=== PATIENT | male | born 1940 | race Two or more races ===

== ENCOUNTER → 2018-05-09 | Emergency (ER) | payer OTHER ==
[2018-05-09 01:11] VITALS: BP 163/74; PULSE 91; TEMP 98.8; BMI 21.4
--- NOTE | 2018-05-09 02:00 | PDOC ---
Attending Attestation - Resident Resident Name: Dhiraj Forbes - ED Attending Attestation I have performed the following: I have examined & evaluated the patient, The case was reviewed & discussed with the resident, I agree w/resident's findings & plan
== END | disposition home or self-care (01) ==
LOC: EDBD 00:08 → JER 00:08
DX: Z53.21 Procedure and treatment not carried out due to patient leaving prior to being seen by health care provider (principal)
CPT/HCPCS: 99281-25